=== PATIENT | male | born 1990 | race Two or more races ===

== ENCOUNTER 2017-06-12 02:04 | Emergency (ER) | payer SELFPAY ==
[~2017-06-12] VITALS: Ht 172.7 cm; Wt 105.2 kg
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
[2017-06-12] MEDS ORDERED: ROBAXIN-750750 MG PO (03:03)
[2017-06-12] MEDS ORDERED: IBUPROFEN600 MG ORAL (03:03)
[2017-06-12 03:08] VITALS: BP 124/72
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
== END 2017-06-12 03:08 | disposition home or self-care (01) ==
LOC: EMR 02:59
DX: S70.02XA Contusion of left hip, initial encounter (principal); V43.52XA Car driver injured in collision with other type car in traffic accident, initial encounter; Y92.410 Unspecified street and highway as the place of occurrence of the external cause; Z91.010 Allergy to peanuts; Z91.018 Allergy to other foods
CPT/HCPCS: 73502; 99284